=== PATIENT | female | born 1975 | race Hispanic/Latino ===

== ENCOUNTER → 2018-10-24 08:06 | Outpatient (CLI) | payer OTHER, SELFPAY ==
[2018-10-24 09:30] LABS: Appearance Urine UA CLEAR; Bilirubin Urine UA NEGATIVE (NEGATIVE); Color Urine UA YELLOW; Glucose Urine UA NEGATIVE (Negative); Ketones Urine UA NEGATIVE (NEGATIVE); Leukocyte Esterase Urine UA NEGATIVE (NEGATIVE); Nitrite Urine UA NEGATIVE (Negative); Occult Blood Urine UA NEGATIVE (Negative); Protein Urine UA NEGATIVE (Negative); Specific Gravity Urine UA 1.025 (1.000-1.035); Urobilinogen Urine UA 0.2 E.U./dL (0.2)
[2018-10-24 10:57] LABS: Add Manual Diff / Slide Review NO; Basophils Absolute Auto 0 /uL (0-100); Basophils Percent Auto 0.7 % (0-2); Eosinophils Absolute Auto 100 /uL (0-450); Eosinophils Percent Auto 2.4 % (2-4); Hemoglobin 13.9 g/dL (12.0-16.0); Lymphocytes Absolute Auto 1300 /uL (1100-4500); Lymphocytes Percent Auto 23.7 % (25-40); Mean Corpuscular HGB Conc 34.7 % (30-36); Mean Corpuscular Hemoglobin 32.3 PG (26-34); Monocytes Absolute Auto 400 /uL (0-900); Monocytes Percent Auto 7.3 % (3-14); Neutrophils Absolute Auto 3600 /uL (1500-7000); Neutrophils Percent Auto 65.9 % (50-75); Platelet Count 245 X10^3/uL (150-400); White Blood Cell Count 5.4 X10^3/uL (4.5-11.0)
[2018-10-24 11:07] LABS: Alanine Aminotransferase 44 IU/L (9-52); Albumin 4.6 g/dL (3.5-5.0); Albumin Globulin Ratio 1.3 (1.0-2.8); Alkaline Phosphatase 63 U/L (38-126); Aspartate Aminotransferase 34 IU/L (14-36); BUN Creatinine Ratio 23.3 (6-22); Bilirubin Total 1.6 mg/dL (0.2-1.3); Blood Urea Nitrogen 14 mg/dL (7-17); Calcium 9.1 mg/dL (8.4-10.2); Carbon Dioxide 26 mmol/L (22-32); Chloride 104 mmol/L (98-107); Cholesterol 282 mg/dL (140-199); Estimated Glomerular Filt Rate > 60.0 mL/min (>60); Globulin 3.5 g/dL (1.7-4.1); Glucose 80 mg/dL (70-100); HDL Cholesterol 61 mg/dL (40-60); HEMOLYSIS < 15 (0-50); LDL Cholesterol Calculated 195 mg/dL (<100); Potassium 4.1 mmol/L (3.4-5.1); Sodium 140 mmol/L (137-145); Total Protein 8.1 g/dL (6.3-8.2); Triglycerides 131 mg/dL (35-150)
[2018-10-24 11:13] LABS: HEMOLYSIS < 15 (0-50); Iron 142 ug/dL (37-170)
[2018-10-24 11:24] LABS: Percent Iron Saturation 42 % (15-50); Total Iron Binding Capacity 340 ug/dL (265-497); Transferrin 291 mg/dL (206-381)
[2018-10-24 11:43] LABS: Thyroid Stimulating Hormone 3.37 uIU/mL (0.47-4.68)
== END ==
PROVIDERS: PCP Family Medicine; Visit Provider Family Medicine
DX: D50.9 Iron deficiency anemia, unspecified (principal); Z12.11 Encounter for screening for malignant neoplasm of colon; Z13.220 Encounter for screening for lipoid disorders; Z13.29 Encounter for screening for other suspected endocrine disorder; Z51.81 Encounter for therapeutic drug level monitoring
CPT/HCPCS: 36415; 80053; 80061; 81003; 83540; 83550; 84443; 85025

== ENCOUNTER → 2018-10-25 14:59 | Outpatient (CLI) | payer OTHER, SELFPAY ==
[2018-10-27 15:40] LABS: Fecal Immunochemical Test NOT DETECTED (NOT DETECTED)
== END ==
PROVIDERS: PCP Family Medicine; Visit Provider Family Medicine
DX: Z12.11 Encounter for screening for malignant neoplasm of colon (principal)
CPT/HCPCS: 82274

== ENCOUNTER → 2019-01-23 07:03 | Outpatient (CLI) | payer OTHER, SELFPAY ==
[2019-01-23 08:49] LABS: Hematocrit 39.6 % (36-46); Hemoglobin 13.6 g/dL (12.0-16.0); Mean Corpuscular HGB Conc 34.3 % (30-36); Mean Corpuscular Hemoglobin 32.4 PG (26-34); Mean Corpuscular Volume 94.3 fL (80-100); Platelet Count 230 X10^3/uL (150-400); Red Cell Distribution Width 12.2 % (11.6-14.8); White Blood Cell Count 4.8 X10^3/uL (4.5-11.0)
[2019-01-23 08:55] LABS: Cholesterol 214 mg/dL (140-199); HDL Cholesterol 57 mg/dL (40-60); LDL Cholesterol Calculated 116 mg/dL (<100); Triglycerides 207 mg/dL (35-150)
[2019-01-23 09:01] LABS: Neutrophils Absolute Manual 3072 /uL (3000-5900); RBC Morphology Normal Morphology; Total Cells Counted 100
== END ==
PROVIDERS: PCP Family Medicine; Visit Provider Family Medicine
DX: E78.5 Hyperlipidemia, unspecified (principal); Z86.2 Personal history of diseases of the blood and blood-forming organs and certain disorders involving the immune mechanism
CPT/HCPCS: 36415; 80061; 85025

== ENCOUNTER → 2019-04-10 09:44 | Outpatient (CLI) | payer OTHER, SELFPAY | PROVIDERS: PCP Family Medicine; Visit Provider Family Medicine | DX: N94.3 Premenstrual tension syndrome (principal); N94.6 Dysmenorrhea, unspecified | CPT/HCPCS: 87086 ==

== ENCOUNTER → 2019-04-24 16:13 | Outpatient (CLI) | payer OTHER, SELFPAY ==
--- NOTE | 2019-04-24 16:14 | DI.US.S_ITS ---
PROCEDURE: US PELVIC COMPLETE INDICATIONS: PELVIC PAIN TECHNIQUE: Real-time scanning was performed of the pelvic organs, with image documentation. Additional endovaginal scanning was necessary due to incomplete visualization of the adnexal and endometrial structures by transabdominal scanning. COMPARISON: None. FINDINGS: Transabdominal scanning: Limited scanning through the kidneys shows no hydronephrosis. No pathologic free abdominal or pelvic fluid. Endovaginal scanning: Uterus: Uterus is normal in size at 1.5-4.3 x 5.1 cm. The endometrium measures 8.7 mm in combined thickness. 1.4 x 1.2 x 1.5 cm mid posterior intramural uterine fibroid noted. 0.8 x 1.0 x 0.8 cm left anterior intramural uterine fibroid. Ovaries: Right ovary measures 3.0 x 1.8 x 1.9 cm. There is a 2.0 x 1.5 x 1.4 cm complex cyst in the right ovary. Left ovary measures 2.4 x 1.2 x 1.2 cm. Left ovary is sonographically normal. IMPRESSION: 1. Small uterine fibroids. 2. 2.0 x 1.5 x 1.4 cm complex right adnexal cyst. Dictated by: Dixie Knapp MD, PhD on 04/25/2019 at 8:24 Approved by: Dixie Knapp MD, PhD on 04/25/2019 at 8:27
== END ==
PROVIDERS: PCP Family Medicine; Visit Provider Family Medicine
DX: R10.2 Pelvic and perineal pain (principal); D25.1 Intramural leiomyoma of uterus; N94.3 Premenstrual tension syndrome; N94.6 Dysmenorrhea, unspecified; N83.291 Other ovarian cyst, right side
CPT/HCPCS: 76830; 76856

== ENCOUNTER → 2019-06-22 16:54 | Outpatient (CLI) | payer OTHER, SELFPAY ==
--- NOTE | 2019-06-22 | DI.MG.S_ITS ---
BILATERAL DIGITAL SCREENING MAMMOGRAM 3D/2D WITH CAD: 06/22/2019 CLINICAL: Routine screening. Comparison is made to exams dated: 10/19/2017 mammogram and 10/07/2017 mammogram - [facility]. The tissue of both breasts is heterogeneously dense. This may lower the sensitivity of mammography. Current study was also evaluated with a Computer Aided Detection (CAD) system. There is a benign cyst in the left breast. No significant masses, calcifications, or other findings are seen in either breast. There has been no significant interval change. IMPRESSION: There is no mammographic evidence of malignancy. A 1 year screening mammogram is recommended. This exam was interpreted at Station ID: [id number]. NOTE: For mammograms, a report in lay terms will be sent to the patient. Approximately 15% of breast malignancies will not be visualized mammographically. In the management of a palpable breast mass, a negative mammogram must not discourage biopsy of a clinically suspicious lesion. Electronically Signed By: Mason ivy/candelaria:06/22/2019 17:59:07 letter sent: Normal Exam ACR BI-RADS Category 2: Benign Finding(s) 3342F
== END ==
PROVIDERS: PCP Family Medicine; Referring Provider Family Medicine; Visit Provider Family Medicine
DX: Z12.31 Encounter for screening mammogram for malignant neoplasm of breast (principal)
CPT/HCPCS: 77063; 77067

== ENCOUNTER → 2020-10-10 08:40 | Outpatient (CLI) | payer OTHER, SELFPAY ==
[2020-10-10 10:24] LABS: Add Manual Diff / Slide Review NO; Basophils Absolute Auto 0 /uL (0-100); Basophils Percent Auto 0.5 % (0-2); Eosinophils Absolute Auto 100 /uL (0-450); Eosinophils Percent Auto 2.1 % (2-4); Hematocrit 39.3 % (36-46); Hemoglobin 13.3 g/dL (12.0-16.0); Lymphocytes Absolute Auto 1400 /uL (1100-4500); Lymphocytes Percent Auto 25.5 % (25-40); Mean Corpuscular HGB Conc 33.9 % (30-36); Mean Corpuscular Hemoglobin 31.6 PG (26-34); Mean Corpuscular Volume 93.1 fL (80-100); Monocytes Absolute Auto 300 /uL (0-900); Monocytes Percent Auto 5.2 % (3-14); Neutrophils Absolute Auto 3700 /uL (1500-7000); Neutrophils Percent Auto 66.7 % (50-75); Platelet Count 244 X10^3/uL (150-400); Red Blood Cell Count 4.22 X10^6/uL (4.0-5.2); Red Cell Distribution Width 12.7 % (11.6-14.8); White Blood Cell Count 5.6 X10^3/uL (4.5-11.0)
[2020-10-10 11:38] LABS: Alanine Aminotransferase 17 IU/L (<35); Albumin 3.9 g/dL (3.5-5.0); Albumin Globulin Ratio 1.3 (1.0-2.8); Alkaline Phosphatase 56 U/L (38-126); Aspartate Aminotransferase 35 IU/L (14-36); BUN Creatinine Ratio 15.9 (6-22); Bilirubin Total 0.9 mg/dL (0.2-1.3); Blood Urea Nitrogen 11 mg/dL (7-17); Carbon Dioxide 22 mmol/L (22-32); Chloride 107 mmol/L (98-107); Cholesterol 176 mg/dL (140-199); Estimated Glomerular Filt Rate > 60.0 mL/min (>60); Globulin 3.1 g/dL (1.7-4.1); Glucose 81 mg/dL (70-100); HDL Cholesterol 70 mg/dL (40-60); HEMOLYSIS < 15 (0-50); LDL Cholesterol Calculated 66 mg/dL (<100); Potassium 4.5 mmol/L (3.4-5.1); Sodium 136 mmol/L (137-145); Triglycerides 199 mg/dL (35-150)
[2020-10-10 11:57] LABS: Thyroid Stimulating Hormone 1.81 uIU/mL (0.47-4.68)
== END ==
PROVIDERS: PCP Family Medicine; Referring Provider Family Medicine; Visit Provider Family Medicine
DX: Z00.00 Encounter for general adult medical examination without abnormal findings (principal); E78.5 Hyperlipidemia, unspecified
CPT/HCPCS: 36415; 80053; 80061; 84443; 85025

== ENCOUNTER 2021-05-19 08:59 | Emergency (ER) | payer OTHER, SELFPAY ==
[2021-05-19] VITALS (9 sets, daily range): BP systolic 135–154; BP diastolic 73–97; PULSE 84–103; RESP 17–18; TEMP 36.8; O2SAT 99–100; BMI 25.0
[2021-05-19 09:55] LABS: Bacteria Urine Few (2-10); Culture Indicated Urine Cult Not Indicated; Ictotest Urine Negative (Negative); RBC Urine 5-10/HPF (0-5/HPF); Squamous Epithelial Cell Urine 10-30 /HPF (0-5/HPF); WBC Urine 1-5/HPF (0-5/HPF)
[2021-05-19] MEDS: SODIUM CHLORIDE 0.9% 1,000 ML 1000 ML IV (10:06)
[2021-05-19 10:16] LABS: Add Manual Diff / Slide Review NO; Basophils Absolute Auto 0 /uL (0-100); Basophils Percent Auto 0.3 % (0-2); Eosinophils Absolute Auto 0 /uL (0-450); Eosinophils Percent Auto 0.2 % (2-4); Hematocrit 39.6 % (36-46); Hemoglobin 13.6 g/dL (12.0-16.0); Lymphocytes Absolute Auto 900 /uL (1100-4500); Lymphocytes Percent Auto 10.4 % (25-40); Mean Corpuscular HGB Conc 34.4 % (30-36); Mean Corpuscular Hemoglobin 31.1 PG (26-34); Mean Corpuscular Volume 90.4 fL (80-100); Monocytes Absolute Auto 500 /uL (0-900); Monocytes Percent Auto 5.8 % (3-14); Neutrophils Absolute Auto 7300 /uL (1500-7000); Neutrophils Percent Auto 83.3 % (50-75); Platelet Count 238 X10^3/uL (150-400); Red Blood Cell Count 4.38 X10^6/uL (4.0-5.2); Red Cell Distribution Width 13.2 % (11.6-14.8); White Blood Cell Count 8.8 X10^3/uL (4.5-11.0)
--- NOTE | 2021-05-19 10:16 | DI.CT.S_ITS ---
PROCEDURE: CT ABDOMEN PELVIS W CON INDICATIONS: low abdominal pain for 24 hours TECHNIQUE: After the administration of oral and intravenous contrast, axial sections were acquired from the lung bases to the pubic symphysis. Coronal and sagittal reformats were performed. For radiation dose reduction, the following was used: automated exposure control, adjustment of mA and/or kV according to patient size. COMPARISON:None. FINDINGS: Image quality: Excellent. Lung bases: Lung bases are clear. Heart size is normal. Solid organs: Liver: The liver has no mass or intrahepatic biliary ductal dilatation. The portal vein and hepatic veins are patent. Biliary: The gallbladder has no gallstones, pericholecystic fluid, gallbladder wall thickening, or surrounding inflammatory change. Pancreas: The pancreas has no mass or ductal dilatation. There is no surrounding inflammation. Spleen: Normal size. There are no masses. Adrenals: No hypertrophy or nodules. Kidneys: No obstructive calculus or hydronephrosis. No solid mass. No cystic mass. Peritoneum and bowel: The distal esophagus and stomach are normal. The small bowel has a normal caliber and appearance. The terminal ileum is normal. The right colon demonstrates diffuse wall thickening and edema possibly related to colitis. The appendix is fluid-filled and measures up to 7.4 mm in diameter. No free fluid or air. Nodes and vessels: No retroperitoneal or mesenteric adenopathy by size criteria. Aorta and inferior vena cava are normal in size. Miscellaneous: No abdominal wall mass or hernia. PELVIS: Genitourinary: The bladder has no wall thickening or mass. No bladder calcifications. The right ovary measures 2.4 x 2.0 cm. Bones: No suspicious bony lesions. No vertebral body compression fractures. IMPRESSION: 1. Fluid-filled appendix measuring 7.4 mm in diameter concerning for early acute appendicitis. 2. Wall thickening of the right colon consistent with colitis. 3. 2.4 cm right ovarian cyst. Findings were discussed with Dr. Brito Dictated by: Aurelio Pinto M.D. on 05/19/2021 at 10:30 Approved by: Aurelio Pinto M.D. on 05/19/2021 at 11:30
[2021-05-19 10:28] LABS: Alanine Aminotransferase 17 IU/L (<35); Albumin 4.5 g/dL (3.5-5.0); Albumin Globulin Ratio 1.2 (1.0-2.8); Alkaline Phosphatase 84 U/L (38-126); Aspartate Aminotransferase 31 IU/L (14-36); BUN Creatinine Ratio 13.4 (6-22); Bilirubin Total 0.6 mg/dL (0.2-1.3); Blood Urea Nitrogen 9 mg/dL (7-17); Calcium 9.1 mg/dL (8.4-10.2); Carbon Dioxide 25 mmol/L (22-32); Chloride 104 mmol/L (98-107); Estimated Glomerular Filt Rate > 60.0 mL/min (>60); Globulin 3.8 g/dL (1.7-4.1); Glucose 93 mg/dL (70-100); HEMOLYSIS 19 (0-50); Lipase 62 U/L (23-300); Potassium 3.9 mmol/L (3.4-5.1); Sodium 136 mmol/L (137-145); Total Protein 8.3 g/dL (6.3-8.2)
--- NOTE | 2021-05-19 10:28 | ED_ITS ---
HPI - Abdominal Pain General Chief Complaint: Abdominal Pain Stated Complaint: ABD PAIN Time Seen by Provider: 05/19/21 09:19 Source: patient Mode of arrival: Ambulatory History of Present Illness HPI narrative: 47-year-old woman with a history of hyperlipidemia comes in complaining of 24 hours of low abdominal pain that she describes as central and between her belly button and pubic symphysis. She describes no fevers has had some diarrhea. She notes that she is 5 days post starting her menstrual cycle and is still having a small amount of spotting. She describes the abdominal pain that she currently is having as sharper and decidedly different from usual menstrual type cramping. She has not had a fever, she has had decreased appetite associated with nausea, mild headache, mild chills. She is not reporting dysuria or flank pain. She has no cough, dyspnea, chest pain or palpitations. Related Data Home Medications Medication Instructions Recorded Confirmed ibuprofen 600 mg tablet 600 mg PO Q6H 10/10/18 10/16/20 Previous Rx's Medication Instructions Recorded pravastatin 20 mg tablet 20 mg PO BEDTIME #90 tab 10/16/20 norethindrone 1.5 mg-ethinyl 1 tab PO DAILY #140 tab 05/06/21 estradiol 30 mcg(21)/iron 75 mg(7) tablet (Jessie Fe 1.5/30 (28)) ondansetron 4 mg disintegrating 4 mg PO Q6H PRN #14 tab 05/19/21 tablet oxycodone-acetaminophen 5 mg-325 1 tab PO Q6H PRN #10 tab 05/19/21 mg tablet Allergies Allergy/AdvReac Type Severity Reaction Status Date / Time No Known Drug Allergies Allergy Verified 05/19/21 09:17 Review of Systems Review of Systems Narrative: Remainder of complete review of systems is otherwise unremarkable except for that included in the HPI. Patient History Medical History Anemia Ankle pain Hair loss Painful menstrual periods Well adult exam Social History Smoking Status: Never smoker alcohol intake: current (1-2 glasses a day) Smoking Status: Never smoker alcohol intake frequency: 0-2 drinks per day Substance Use Type: does not use Exam Initial Vital Signs Initial Vital Signs: Vital Signs Temperature 98.2 F 05/19/21 09:10 Pulse Rate 103 H 05/19/21 09:10 Respiratory Rate 18 05/19/21 09:10 Blood Pressure 154/97 H 05/19/21 09:10 Pulse Oximetry 100 05/19/21 09:10 General: Healthy appearing, experiencing mild abdominal pain. Able to give a complete and coherent history. Well-nourished well-developed HEENT: Moist mucous membranes, normal sclera with reactive pupils, Respiratory: Lungs are clear to auscultation, no wheezing no rales no rhonchi. Full and symmetrical air movement Cardiac: Regular rate and rhythm no murmurs no bruits Abdomen: Soft, mild tenderness in the lower portion of her abdomen with majority of tenderness midline and infra umbilical. Good bowel tones, no flank pain Skin: Warm and dry, no rashes Neurologic: Grossly neurologically intact with no obvious asymmetries or abnormalities Extremities: No trauma, well perfused Psych: Cooperative, appropriate insight and affect Course Orders Ordered: ED Orders 05/19/21 09:24 Ictotest Urine Stat Urine Microscopic Stat 05/19/21 10:04 Complete Blood Count AUTO DIFF Stat Comprehensive Metabolic Panel Stat Lipase Stat 05/19/21 10:16 CT abdomen pelvis w con Stat Discontinued Medications Sodium Chloride (Normal Saline 0.9%) 1,000 mls @ 1,000 mls/hr IV BOLUS ONE Stop: 05/19/21 10:34 Last Admin: 05/19/21 10:06 Dose: 1,000 mls/hr Documented by: EMILIO Vital Signs Vital signs: Vital Signs - 8 hr 05/19/21 09:10 05/19/21 10:03 05/19/21 10:04 Temperature 98.2 F Pulse Rate 103 H 89 89 Respiratory Rate 18 17 Blood Pressure 154/97 H 141/74 H Pulse Oximetry 100 100 100 05/19/21 10:30 05/19/21 11:00 05/19/21 11:24 Temperature Pulse Rate 86 85 86 Respiratory Rate 18 18 Blood Pressure 145/82 H Pulse Oximetry 100 99 100 05/19/21 11:30 Temperature Pulse Rate 85 Respiratory Rate Blood Pressure 149/83 H Pulse Oximetry 100 MDM - Abdominal Pain Lab Data Result diagrams: 05/19/21 10:04 05/19/21 10:04 Labs: Lab Results 0105/19/21 05/19/21 Range/Units 09:24 10:04 10:04 WBC 8.8 (4.5-11.0) X10^3/uL RBC 4.38 (4.0-5.2) X10^6/uL Hgb 13.6 (12.0-16.0) g/dL Hct 39.6 (36-46) % MCV 90.4 (80-100) fL MCH 31.1 (26-34) PG MCHC 34.4 (30-36) % RDW 13.2 (11.6-14.8) % Plt Count 238 (150-400) X10^3/uL Neut % (Auto) 83.3 H (50-75) % Lymph % (Auto) 10.4 L (25-40) % [place] % (Auto) 5.8 (3-14) % Eos % (Auto) 0.2 L (2-4) % Baso % (Auto) 0.3 (0-2) % Neut # (Auto) 7300 H (8671-9348) /uL Lymph # (Auto) 900 L (0989-3089) /uL [place] # (Auto) 500 (0-900) /uL Eos # (Auto) 0 (0-450) /uL Baso # (Auto) 0 (0-100) /uL Sodium 136 L (137-145) mmol/L Potassium 3.9 (3.4-5.1) mmol/L Chloride 104 (98-107) mmol/L Carbon Dioxide 25 (22-32) mmol/L BUN 9 (7-17) mg/dL Creatinine 0.67 (0.52-1.04) mg/dL Estimated GFR > 60.0 (>60) mL/min BUN/Creatinine Ratio 13.4 (6-22) Glucose 93 (70-100) mg/dL Calcium 9.1 (8.4-10.2) mg/dL Total Bilirubin 0.6 (0.2-1.3) mg/dL AST 31 (14-36) IU/L ALT 17 (<35) IU/L Alkaline Phosphatase 84 (38-126) U/L Total Protein 8.3 H (6.3-8.2) g/dL Albumin 4.5 (3.5-5.0) g/dL Globulin 3.8 (1.7-4.1) g/dL Albumin/Globulin Ratio 1.2 (1.0-2.8) Lipase 62 (23-300) U/L Ur Bilirubin Confirm Negative (Negative) Urine RBC 5-10/hpf H (0-5/HPF) Urine WBC 1-5/hpf (0-5/HPF) Ur Squamous Epith Cells 10-30 /hpf H (0-5/HPF) Urine Bacteria Few (2-10) H (None) Ur Culture Indicated? Cult not indicated Point of care testing: Point of Care Testing Test Results Negative Urine Dip Bedside Urine Glucose Negative Bedside Urine Bilirubin ++ 2 Bedside Urine Ketone +++ 80 Urine Specific [place] 1.030 Bedside Urine Occult Blood +++ Bedside Urine pH 6.0 Bedside Urine Protein + 30 Bedside Urine Urobilinogen - Negative Bedside Urine Nitrite - Negative Bedside Urine Leukocytes - Negative Esterase MDM Narrative Medical decision making narrative: Healthy 46-year-old woman with 24 hours of low abdominal pain and diarrhea. Labs are reassuring CT scan shows a slightly distended fluid-filled appendix at 7 mm with out significant associated inflammatory changes that could be consistent with a developing appendicitis she also has colon wall thickness from the right colon to the transverse colon that could be consistent with colitis. Discuss care with Dr. Saldana, general surgery regarding disposition. After reviewing clinical findings labs and CT scan agrees that discharged home with close return precautions does seem appropriate. Findings reviewed with patient and her . Went over all labs, clinical findings and CT scan results as well as discussion with the surgeon. Recommended discharge home with a short course of Percocet to help cover up the pain. If if symptoms significantly worsen she needs to return to the emergency department. Went over signs and symptoms of worsening appendicitis as well as colitis. She and her were both safe with this discharge plan. Questions were answered. Discharge Plan Departure Patient Disposition: Home Clinical Impression: Abdominal pain, Colitis Instructions: DI for Appendicitis -- Adult, DI for Colitis Activity Restrictions/Additional Instructions: Thank you for coming in today Your lab work was very reassuring with no signs of acute infection. Your CT scan suggested inflammation along the right side of your colon consistent with colitis. This absolutely could cause the rhythmic pain that you are experiencing as well as the diarrhea. Also noted on the CT scan is some mild inflammation to your appendix. This may be part of the colitis but it may also be a developing appendicitis. Appendicitis is a process that will continue to get worse. If you do notice that the pain is no longer controlled with Percocet and seems to be localizing to your right lower portion of your abdomen the concern for appendicitis would increase. I discussed your case with our general surgeon today. Together we felt that it was safe for you to go and use Percocet, a narcotic plus Tylenol, for pain control for the next 1-2 days. If your pain worsens to the point that the Percocet is not working, your developing fevers, having uncontrolled vomiting or new symptoms you need to return to the emergency department and we need to re- evaluate. If symptoms resolve, you will need to follow-up with your primary care physician. It may be that these episodes of abdominal pain you have had over the last number of years of are related to of mild recurrent colitis. Your primary care doctor may want to refer you to a evening or night nurse supervisor for consideration of colonoscopy while you are healthy and asymptomatic. Please have a very low threshold for returning to the emergency department if symptoms worsen Prescriptions: New ondansetron 4 mg tablet,disintegrating 4 mg PO Q6H PRN (Reason: nausea and vomiting) Qty: 14 0RF oxycodone-acetaminophen 5-325 mg tablet 1 tab PO Q6H PRN (Reason: pain) Qty: 10 0RF No Action norethindrone-e.estradiol-iron [Jessie Fe 1.5/30 (28)] 1.5 mg-30 mcg (21)/75 mg (7) tablet 1 tab PO DAILY Qty: 140 0RF Rx Instructions: APPOINTMENT DUE FOR FURTHER REFILLS. PLEASE SCHEDULE APPOINTMENT FOR MAY. THANK YOU! pravastatin 20 mg tablet 20 mg PO BEDTIME Qty: 90 3RF ibuprofen 600 mg tablet 600 mg PO Q6H 0RF Referrals: Loi Borja, [Primary Care Provider] -
[2021-05-19] MEDS: OXYCODONE/ACETAMINOPHEN 5/325 TABLET 1 TAB PO (12:32)
[2021-05-19] MEDS: ONDANSETRON 4 MG/2 ML INJ IV (12:33)
== END 2021-05-19 12:37 | disposition home or self-care (01) ==
PROVIDERS: Emergency Provider Emergency Medicine; PCP Family Medicine
DX: R10.30 Lower abdominal pain, unspecified (principal); K52.9 Noninfective gastroenteritis and colitis, unspecified
CPT/HCPCS: 36415; 74177; 80053; 81003; 81015; 81025; 83690; 85025; 96361; 96374; 99284; J2405; Q9967

== ENCOUNTER → 2021-08-08 13:55 | Outpatient (CLI) | payer OTHER, SELFPAY ==
[2021-08-08 14:26] LABS: COVID19 -Nasal RAPID Negative (Negative)
== END ==
PROVIDERS: PCP Family Medicine; Visit Provider Family Medicine Sleep Medicine
DX: Z20.822 Contact with and (suspected) exposure to COVID-19 (principal)
CPT/HCPCS: 87635; C9803

== ENCOUNTER 2021-08-11 06:43 | Day surgery (SDC) | payer OTHER, SELFPAY ==
--- NOTE | 2021-08-11 | PATH_ITS ---
[facility] Accession Number: [id number] . 01 Material submitted: . PART A: duodenum - DUODENUM PART B: stomach - ANTRUM PART C: colon - RANDOM COLON . 02 Diagnosis: A. Duodenum, Biopsy: Mild active duodenitis, non-specific. Negative for features of sprue, dysplasia, or malignancy. . B. Antrum, Biopsy: Gastric antral mucosa with chronic active gastritis. Positive for Helicobacter organisms by immunohistochemistry. Negative for intestinal metaplasia. Negative for dysplasia or malignancy. . C. Random Colon: Colonic mucosa with no diagnostic abnormality. Negative for active, chronic, and microscopic colitis. Negative for dysplasia and malignancy. [facility] 08/15/2021 1559 Local . 02 Electronically signed: . Barbara Dhillon MD, Pathologist NPI- [id number] . 01 Gross description: . Part A: DUODENUM: Received in formalin are multiple fragment(s) of silva, soft tissue measuring 0.7 x 0.5 x 0.1 cm in aggregate submitted entirely in 1 cassette(s) Part B: ANTRUM: Received in formalin are 2 fragment(s) of silva, soft tissue measuring 0.2 x 0.2 x 0.1 cm to 0.2 x 0.1 x 0.1 cm submitted entirely in 1 cassette(s) Part C: RANDOM COLON: Received in formalin are 2 fragment(s) of silva, soft tissue measuring 0.3 x 0.2 x 0.1 cm to 0.2 x 0.1 x 0.1 cm submitted entirely in 1 cassette(s) /[facility] 08/12/2021 0854 Local . 02 Microscopic: . B. An immunohistochemical stain is performed to evaluate for Helicobacter organisms and is positive. The control stain shows appropriate reactivity. . . * This test was developed and its performance characteristics determined by [facility]. It has not been cleared or approved by the U.S. Food and Drug Administration. The FDA has determined that such clearance or approval is not necessary. This test is used for clinical purposes. It should not be regarded as investigational or for research. . 02 Pathologist provided ICD-10: R12, R19.4, K29.70 . 02 CPT . 336775, 996788, 717510, C50829 Specimen Comment: A courtesy copy of this report has been sent to [facility] Performed at: 01 [facility] [address] [place] [address], [place], [place] [id number] MD Lorenzo Hampton MD Phone: [phone] Performed at: 02 [facility] [address] [place] [id number] MD Lovely Turner MD Phone: [phone]
[2021-08-11 07:15] VITALS: BP 117/79; PULSE 74; RESP 14; TEMP 36.6; O2SAT 100
[2021-08-11 07:17] VITALS: BMI 26.1
[2021-08-11] MEDS: SODIUM CHLORIDE 0.9% 1,000 ML 150 ML IV (07:31)
--- NOTE | 2021-08-11 07:57 | PM.HP.1 ---
History of Present Illness History of Present Illness Date Patient Seen: 08/11/21 Time Patient Seen: 07:58 Chief complaint: SDC Narrative: I reviewed Dr. Shetty's note. No changes. Patient History Medical History Anemia Ankle pain Fatigue Hair loss Painful menstrual periods Well adult exam Family & Social History Social History: household members spouse Tobacco & Substance use: Smoking Status Never smoker alcohol intake current alcohol intake frequency 0-2 drinks per day Substance Use Type does not use Meds Home Medications and Allergies Home Medications Medication Instructions Recorded Confirmed Type melatonin 1 mg tablet 2 mg PO BEDTIME 08/11/21 08/11/21 History Allergies Allergy/AdvReac Type Severity Reaction Status Date / Time No Known Drug Allergies Allergy Verified 08/11/21 07:13 Review of Systems Review of Systems ROS: Yes All systems reviewed with the patient and are negative except as otherwise documented Exam Vital Signs (past 8 hours): - 08/11/21 07:15 Temperature 97.8 F Pulse Rate 74 Respiratory Rate 14 Blood Pressure 117/79 Pulse Oximetry 100 Oxygen Delivery Method Room Air Const General: cooperative and comfortable Orientation: alert HENMT Head: normocephalic Ears: external ears normal Nose: external nose normal Face and sinus: normal facial exam Mouth: oral mucosae normal Eyes General: appearance normal, both eyes and all related structures Neck Neck: normal visual inspection Chest Chest: normal inspection of the chest Resp Effort & Inspection: normal respiratory effort Cardio Rate: regular rate GI Inspection: normal to inspection Skin General: no rashes or lesions noted and No jaundice Neuro General: patient alert and moves all extremities Cognition: normal cognition Speech: speech normal Extrem General: no pedal edema Psych Appearance: grossly normal Assessment & Plan Assessment & Plan narrative: 46-year-old female with abdominal pain, tendency towards diarrhea but can have constipation and abnormal imaging. EGD and colonoscopy are pursued today. Time Spent With Patient Critical Care time: I spent a total of [] minutes of critical care time on this patient's care today; this time is exclusive of procedural time.
--- NOTE | 2021-08-11 07:59 | PM.PREOP ---
Pre-operative Note COVID-19 COVID-19 status: Negative Result date/Date tested (Pos, Neg/Pending): 08/08/21 Criteria for continued procedure: Possibility delay results in more complex future surgery or treatment Interval Note History & Physical reviewed/Exam performed by Physician: Yes Changes to H&P: No ASA Class (for procedural sedation): I
[2021-08-11] MEDS: LIDOCAINE VISCOUS 2% 15 ML SOLUTION PO (08:00)
--- NOTE | 2021-08-11 08:35 | PM.OP.EC ---
Operative Date/Time/Diagnoses Date of procedure: 08/11/21 Time of procedure: 08:36 Pre-op diagnosis: Abdominal pain abnormal imaging altered bowel habits including diarrhea Post-op diagnosis: same Procedure & Clinicians Study performed: EGD with biopsy and colonoscopy with biopsy Same procedure as scheduled: Yes Indications: Abdominal pain abnormal imaging altered bowel habits including diarrhea Surgeon: Frank Carranza Procedure Notes SCOAP/Timeout: Done Procedure in detail: After the risks and benefits were explained, written and verbal informed consent was obtained. The patient was brought into the procedure room and placed into the left lateral decubitus position. Please see nurse decision analyst notes for sedation details. The scope was introduced into the mouth through the bite block and advanced under direct visualization to the 2nd portion of the duodenum. The scope was slowly withdrawn carefully examining the mucosa for any defects or lesions. Retroflexed views were accomplished in the stomach. The stomach was decompressed, the scope was then removed from the patient who tolerated the procedure well. Patient was then turned around a digital rectal examination accomplished no significant pathology appreciated. The scope was introduced into the rectum and advanced to the cecum as identified by the appendiceal orifice and ileocecal valve. The scope was slowly withdrawn to carefully examine the mucosa for any defects or lesions. Multiple direct views were accomplished through the dentate line for exclusion of pathology the colon was decompressed the scope removed from the patient who tolerated the procedure well. Bowel prep adequate Adult colonoscope Scope withdrawal time: 11 minutes Sedation minutes: 31 Complications: none Impression: 1. Duodenum: This appeared visually unremarkable from the bulb through to the 2nd portion. Random biopsies from D2 were accomplished considering the patient's symptoms. 2. Stomach: Mild gastropathy was appreciated and therefore biopsies were taken from the antrum for exclusion of Helicobacter or other pathology. I did not appreciate any ulcers outlet obstruction mass lesions or other significant mucosal pathology. Retroflexed views of the LES were unremarkable. 3. Esophagus: The squamocolumnar junction correlated with the top of the gastric folds. GEJ was at 35 cm from the incisors. The remainder the esophagus was unremarkable. 4. Terminal ileum: This was visualized and appeared normal. No signs of Crohn's. 5. Colon: No proctitis no colitis identified throughout. Random colon biopsies were taken from the right colon for exclusion of microscopic colitis. There was some mild diverticulosis in the sigmoid. Endoscopic diagnosis 1. Mild gastropathy 2. Otherwise visually unremarkable EGD 3. Mild sigmoid diverticulosis 4. Otherwise visually normal appearing colonoscopy and terminal ileoscopy Post-procedure Plan for aftercare: 1. Await histopathology 2. Repeat colonoscopy 10 years time 3. Continue fiber based bowel regimen and follow up in GI clinic in the next 8 weeks Disposition: PACU
[2021-08-11 08:38] VITALS: BP 111/71; PULSE 71; RESP 16; TEMP 37; O2SAT 98
[2021-08-11 08:43] VITALS: BP 114/64; PULSE 66; RESP 16; O2SAT 98
[2021-08-11 08:48] VITALS: BP 122/77; PULSE 68; RESP 16; O2SAT 98
[2021-08-11 08:57] VITALS: BP 132/72; PULSE 61; RESP 16; TEMP 36.2; O2SAT 98
== END 2021-08-11 09:09 | disposition home or self-care (01) ==
PROVIDERS: PCP Family Medicine; Referring Provider Internal Medicine Gastroenterology; Visit Provider Internal Medicine Gastroenterology
PROC: 0DJ08ZZ Inspection of Upper Intestinal Tract, Via Natural or Artificial Opening Endoscopic (ICD-10-PCS; CPT 43235; principal; 2021-08-11 08:00)
PROC: 0DJD8ZZ Inspection of Lower Intestinal Tract, Via Natural or Artificial Opening Endoscopic (ICD-10-PCS; CPT 45378; 2021-08-11 08:00)
DX: R10.9 Unspecified abdominal pain (principal); R19.7 Diarrhea, unspecified; R93.3 Abnormal findings on diagnostic imaging of other parts of digestive tract; K57.30 Diverticulosis of large intestine without perforation or abscess without bleeding; K31.9 Disease of stomach and duodenum, unspecified; K29.50 Unspecified chronic gastritis without bleeding; K29.80 Duodenitis without bleeding
CPT/HCPCS: 45380; 43239; 81025; J2704

== ENCOUNTER → 2021-11-10 10:08 | Outpatient (CLI) | payer OTHER, SELFPAY ==
[2021-11-11 13:33] LABS: Interpretation Negative (Negative)
== END ==
PROVIDERS: PCP Family Medicine; Referring Provider Internal Medicine Gastroenterology; Visit Provider Internal Medicine Gastroenterology
DX: K29.60 Other gastritis without bleeding (principal)
CPT/HCPCS: 83013

== ENCOUNTER 2022-03-02 11:23 | Emergency (ER) | payer OTHER, SELFPAY ==
[2022-03-02] VITALS (10 sets, daily range): BP systolic 134–195; BP diastolic 71–94; PULSE 67–75; RESP 10–25; TEMP 36.6; O2SAT 98–100; BMI 25.9
--- NOTE | 2022-03-02 11:38 | DI.RAD.S_ITS ---
PROCEDURE: XR CHEST 1V INDICATIONS: chest pain TECHNIQUE: One view of the chest was acquired. COMPARISON: None. FINDINGS: Surgical changes and devices: None. Lungs and pleura: Lungs are clear. No pleural effusions or pneumothorax. Mediastinum: Mediastinal contours appear normal. Heart size is normal. Bones and chest wall: No suspicious bony lesions. Overlying soft tissues appear unremarkable. IMPRESSION: No acute process. Dictated by: Nevaeh Beard M.D. on 03/02/2022 at 11:55 Approved by: Nevaeh Beard M.D. on 03/02/2022 at 11:56
[2022-03-02 11:43] LABS: Add Manual Diff / Slide Review NO; Basophils Absolute Auto 0 /uL (0-100); Basophils Percent Auto 0.6 % (0-2); Eosinophils Absolute Auto 100 /uL (0-450); Eosinophils Percent Auto 1.8 % (2-4); Hematocrit 40.7 % (36-46); Hemoglobin 13.5 g/dL (12.0-16.0); Lymphocytes Absolute Auto 2100 /uL (1100-4500); Mean Corpuscular HGB Conc 33.2 % (30-36); Mean Corpuscular Hemoglobin 30.4 PG (26-34); Mean Corpuscular Volume 91.7 fL (80-100); Monocytes Absolute Auto 500 /uL (0-900); Monocytes Percent Auto 7.8 % (3-14); Neutrophils Absolute Auto 3400 /uL (1500-7000); Neutrophils Percent Auto 55.8 % (50-75); Platelet Count 233 X10^3/uL (150-400); Red Blood Cell Count 4.44 X10^6/uL (4.0-5.2); Red Cell Distribution Width 13.4 % (11.6-14.8); White Blood Cell Count 6.1 X10^3/uL (4.5-11.0)
[2022-03-02 11:53] LABS: Alanine Aminotransferase 24 IU/L (<35); Albumin 4.6 g/dL (3.5-5.0); Albumin Globulin Ratio 1.2 (1.0-2.8); Alkaline Phosphatase 89 U/L (38-126); Aspartate Aminotransferase 31 IU/L (14-36); BUN Creatinine Ratio 15.6 (6-22); Bilirubin Total 0.8 mg/dL (0.2-1.3); Blood Urea Nitrogen 10 mg/dL (7-17); Calcium 9.1 mg/dL (8.4-10.2); Carbon Dioxide 24 mmol/L (22-32); Chloride 102 mmol/L (98-107); Creatine Kinase 106 U/L (30-135); Estimated Glomerular Filt Rate > 60 mL/min (>60); Glucose 96 mg/dL (70-100); HEMOLYSIS < 15 (0-50); Lipase 108 U/L (23-300); Magnesium 1.6 mg/dL (1.6-2.3); Potassium 3.7 mmol/L (3.4-5.1); Sodium 137 mmol/L (137-145); Total Protein 8.6 g/dL (6.3-8.2)
[2022-03-02 12:05] LABS: Troponin I < 0.012 ng/mL (0.01-0.034)
[2022-03-02 12:08] LABS: CKMB % Relative Index 0.8 % (1.5-5.0); Creatine Kinase MB 0.81 ng/mL (<2.37)
--- NOTE | 2022-03-02 14:46 | ED.CHESTPAIN ---
HPI - Chest Pain <Virgilio Victor PA-C - Last Filed: 03/02/22 19:20> General Chief Complaint: Chest Pain Stated Complaint: Stomach Pain/Heartburn/Fatige/Chest Pressure Time Seen by Provider: 03/02/22 13:42 Mode of arrival: Family Vehicle History of Present Illness HPI narrative: 47-year-old female with past medical history GERD, H pylori, hyperlipidemia presents to the ED with substernal chest pressure, abdominal cramping. Patient states that she has had abdominal issues for several years, was diagnosed with H pylori recently, was treated with antibiotics, retested to ensure resolution. Patient states that since the treatment, her symptoms have considerably improved. However, patient states that over the last week she has had worsening lower abdominal cramping, developed some substernal chest pressure yesterday. Patient denies fever, chills, shortness of breath, nausea, vomiting, dysuria, lightheadedness, dizziness, syncope. Patient states that her GERD has been acting up recently, she is taken Tums with no relief. Related Data Home Medications Medication Instructions Recorded Confirmed melatonin 1 mg tablet 2 mg PO BEDTIME 08/11/21 02/08/22 Previous Rx's Medication Instructions Recorded dicyclomine 10 mg capsule 10 mg PO TID PRN stomach cramps 03/02/22 #30 caps Allergies Allergy/AdvReac Type Severity Reaction Status Date / Time No Known Drug Allergies Allergy Verified 03/02/22 11:36 Review of Systems <Virgilio Victor PA-C - Last Filed: 03/02/22 19:20> Review of Systems ROS Unobtainable: All systems reviewed & are unremarkable except as noted in HPI and below Constitutional Constitutional: Denies chills, Denies fatigue, Denies fever(s), Denies frequent falls, Denies lethargy and Denies weakness Eyes Eyes: Denies change in vision, Denies eye discharge, Denies irritation and Denies loss of vision ENT Ears, Nose, Mouth, and Throat: Denies change in voice, Denies dizziness, Denies neck pain, Denies sore throat and Denies throat swelling Cardiovascular Cardiovascular: Reports chest pain, Denies irregular heart rhythm, Denies lightheadedness, Denies palpitations, Denies dyspnea, Denies dyspnea on exertion and Denies orthopnea Respiratory Respiratory: Denies cough, Denies dyspnea, Denies dyspnea on exertion and Denies wheezing Gastrointestinal Gastrointestinal: Reports abdominal pain, Denies change in bowel habits, Denies diarrhea, Denies nausea and Denies vomiting Genitourinary Genitourinary: Denies hematuria, Denies flank pain, Denies urinary incontinence and Denies urinary urgency Musculoskeletal Musculoskeletal: Denies back pain, Denies muscle weakness, Denies neck pain, Denies numbness and Denies tingling Integumentary/Breasts Skin/Breast: Denies pruritus, Denies erythema, Denies rash and Denies wounds Neurologic Neurologic: Denies behavioral changes, Denies confusion, Denies dizziness, Denies frequent falls, Denies loss of vision, Denies numbness, Denies tingling and Denies weakness Psychiatric Psychiatric: Denies anxiety, Denies behavioral changes, Denies confusion, Denies depression, Denies homicidal ideation and Denies suicidal ideation Endocrine Endocrine: Denies fatigue, Denies flushing and Denies palpitations Hematologic/Lymphatic Hematologic/Lymphatic: Denies easy bruising Allergic/Immunologic Allergic/Immunologic: Denies urticaria, Denies throat swelling and Denies wheezing Patient History <Virgilio Victor PA-C - Last Filed: 03/02/22 19:20> Medical History Anemia Ankle pain Fatigue Hair loss Painful menstrual periods Well adult exam Social History household members: spouse Smoking Status: Never smoker alcohol intake: current Smoking Status: Never smoker alcohol intake frequency: 0-2 drinks per day Substance Use Type: does not use Exam <Virgilio Victor PA-C - Last Filed: 03/02/22 19:20> Narrative Exam Narrative: Const General:?cooperative, healthy appearing and comfortable [facility] Head:?normal to inspection Ears:?hearing grossly normal bilaterally Nose:?external nose normal Face and sinus:?normal facial exam and sinuses nontender Mouth:?oral mucosae normal Throat:?posterior oropharynx normal Eyes General:?appearance normal, both eyes and all related structures Neck Neck:?normal visual inspection and no lymphadenopathy noted Resp Effort & Inspection:?normal respiratory effort Auscultation:?clear to auscultation bilaterally Cardio Rate:?regular rate Rhythm:?regular rhythm GI Abdomen is soft, nondistended, nontender to palpation. No CVA tenderness. Neuro General:?patient alert, patient awake and patient oriented x3 Initial Vital Signs Initial Vital Signs: Vital Signs Pulse Rate 71 03/02/22 11:32 Respiratory Rate 15 03/02/22 11:32 Pulse Oximetry 100 03/02/22 11:32 <Barbara Rocha DO - Last Filed: 03/02/22 19:23> Initial Vital Signs Initial Vital Signs: Vital Signs Pulse Rate 71 03/02/22 11:32 Respiratory Rate 15 03/02/22 11:32 Pulse Oximetry 100 03/02/22 11:32 Course <Virgilio Victor PA-C - Last Filed: 03/02/22 19:20> Orders Ordered: ED Orders 03/02/22 11:35 Complete Blood Count AUTO DIFF Stat Comprehensive Metabolic Panel Stat Lipase Stat Magnesium Stat Troponin & CK Cardiac Panel Stat 03/02/22 11:38 XR chest 1V Stat EKG-12 Lead Stat 03/02/22 14:00 Troponin I Stat 03/02/22 14:04 EKG-12 Lead Stat Discontinued Medications Al Hydrox/Mg Hydrox/Simethicone 20 ml/ Lidocaine HCl 15 ml 0 ml PO NOW ONE Stop: 03/02/22 14:55 Last Admin: 03/02/22 15:06 Dose: 35 ml Documented By: RODERICK Famotidine (Famotidine 20 Mg/2 Ml Vial) 20 mg IV NOW ONE Stop: 03/02/22 15:16 Last Admin: 03/02/22 15:06 Dose: 20 mg Documented By: RODERICK Vital Signs Vital signs: Vital Signs - 8 hr 03/02/22 11:33 03/02/22 11:32 03/02/22 12:00 Temperature 98 F Pulse Rate 71 71 67 Respiratory Rate 12 15 18 Blood Pressure 195/94 H Pulse Oximetry 98 100 100 Oxygen Delivery Method Room Air 03/02/22 12:30 03/02/22 13:00 03/02/22 13:30 Temperature Pulse Rate 69 75 74 Respiratory Rate 16 17 18 Blood Pressure Pulse Oximetry 100 100 100 Oxygen Delivery Method 03/02/22 14:00 03/02/22 14:29 03/02/22 14:29 Temperature Pulse Rate 75 72 Respiratory Rate 25 H 10 L Blood Pressure 150/83 H Pulse Oximetry 100 100 Oxygen Delivery Method 03/02/22 14:30 03/02/22 14:30 03/02/22 15:00 Temperature Pulse Rate 71 Respiratory Rate 16 Blood Pressure 144/84 H 134/71 Pulse Oximetry 100 Oxygen Delivery Method 03/02/22 15:00 Temperature Pulse Rate 69 Respiratory Rate 12 Blood Pressure Pulse Oximetry 98 Oxygen Delivery Method <Barbara Rocha, - Last Filed: 03/02/22 19:23> Orders Ordered: ED Orders 03/02/22 11:35 Complete Blood Count AUTO DIFF Stat Comprehensive Metabolic Panel Stat Lipase Stat Magnesium Stat Troponin & CK Cardiac Panel Stat 03/02/22 11:38 XR chest 1V Stat EKG-12 Lead Stat 03/02/22 14:00 Troponin I Stat 03/02/22 14:04 EKG-12 Lead Stat Discontinued Medications Al Hydrox/Mg Hydrox/Simethicone 20 ml/ Lidocaine HCl 15 ml 0 ml PO NOW ONE Stop: 03/02/22 14:55 Last Admin: 03/02/22 15:06 Dose: 35 ml Documented By: RODERICK Famotidine (Famotidine 20 Mg/2 Ml Vial) 20 mg IV NOW ONE Stop: 03/02/22 15:16 Last Admin: 03/02/22 15:06 Dose: 20 mg Documented By: RODERICK Vital Signs Vital signs: Vital Signs - 8 hr 03/02/22 11:33 03/02/22 11:32 03/02/22 12:00 Temperature 98 F Pulse Rate 71 71 67 Respiratory Rate 12 15 18 Blood Pressure 195/94 H Pulse Oximetry 98 100 100 Oxygen Delivery Method Room Air 03/02/22 12:30 03/02/22 13:00 03/02/22 13:30 Temperature Pulse Rate 69 75 74 Respiratory Rate 16 17 18 Blood Pressure Pulse Oximetry 100 100 100 Oxygen Delivery Method 03/02/22 14:00 03/02/22 14:29 03/02/22 14:29 Temperature Pulse Rate 75 72 Respiratory Rate 25 H 10 L Blood Pressure 150/83 H Pulse Oximetry 100 100 Oxygen Delivery Method 03/02/22 14:30 03/02/22 14:30 03/02/22 15:00 Temperature Pulse Rate 71 Respiratory Rate 16 Blood Pressure 144/84 H 134/71 Pulse Oximetry 100 Oxygen Delivery Method 03/02/22 15:00 Temperature Pulse Rate 69 Respiratory Rate 12 Blood Pressure Pulse Oximetry 98 Oxygen Delivery Method MDM - Chest Pain <Hyma Valente, PA-C - Last Filed: 03/02/22 19:20> Lab Data Result diagrams: 03/02/22 11:35 03/02/22 11:35 Labs: Lab Results 03/02/22 03/02/22 03/02/22 Range/Units 11:35 11:35 14:00 WBC 6.1 (4.5-11.0) X10^3/uL RBC 4.44 (4.0-5.2) X10^6/uL Hgb 13.5 (12.0-16.0) g/dL Hct 40.7 (36-46) % MCV 91.7 (80-100) fL MCH 30.4 (26-34) PG MCHC 33.2 (30-36) % RDW 13.4 (11.6-14.8) % Plt Count 233 (150-400) X10^3/uL Neut % (Auto) 55.8 (50-75) % Lymph % (Auto) 34.0 (25-40) % [place] % (Auto) 7.8 (3-14) % Eos % (Auto) 1.8 L (2-4) % Baso % (Auto) 0.6 (0-2) % Neut # (Auto) 3400 (2479-5248) /uL Lymph # (Auto) 2100 (8133-1974) /uL [place] # (Auto) 500 (0-900) /uL Eos # (Auto) 100 (0-450) /uL Baso # (Auto) 0 (0-100) /uL Sodium 137 (137-145) mmol/L Potassium 3.7 (3.4-5.1) mmol/L Chloride 102 (98-107) mmol/L Carbon Dioxide 24 (22-32) mmol/L BUN 10 (7-17) mg/dL Creatinine 0.64 (0.52-1.04) mg/dL Estimated GFR > 60 (>60) mL/min BUN/Creatinine Ratio 15.6 (6-22) Glucose 96 (70-100) mg/dL Calcium 9.1 (8.4-10.2) mg/dL Magnesium 1.6 (1.6-2.3) mg/dL Total Bilirubin 0.8 (0.2-1.3) mg/dL AST 31 (14-36) IU/L ALT 24 (<35) IU/L Alkaline Phosphatase 89 (38-126) U/L Total Creatine Kinase 106 (30-135) U/L CK-MB (CK-2) 0.81 (<2.37) ng/mL CK-MB (CK-2) Rel Index 0.8 L (1.5-5.0) % Troponin I < 0.012 < 0.012 (0.01-0.034) ng/mL Total Protein 8.6 H (6.3-8.2) g/dL Albumin 4.6 (3.5-5.0) g/dL Globulin 4.0 (1.7-4.1) g/dL Albumin/Globulin Ratio 1.2 (1.0-2.8) Lipase 108 (23-300) U/L Imaging Data Chest x-ray: Radiologist's Impression: PROCEDURE:? XR CHEST 1V ? INDICATIONS:? chest pain ? TECHNIQUE:? One view of the chest was acquired.? ? COMPARISON:? None. ? FINDINGS:? ? Surgical changes and devices:? None.? ? Lungs and pleura:? Lungs are clear.? No pleural effusions or pneumothorax.? ? Mediastinum:? Mediastinal contours appear normal.? Heart size is normal.? ? Bones and chest wall:? No suspicious bony lesions.? Overlying soft tissues appear unremarkable.? ? IMPRESSION:? No acute process. ? ? Dictated by: Nevaeh Beard M.D. on 03/02/2022 at 11:55 ? ? Approved by: Nevaeh Beard M.D. on 03/02/2022 at 11:56 ? [facility] Narrative Medical decision making narrative: 47-year-old female with past medical history GERD, H pylori, hyperlipidemia presents to the ED with substernal chest pressure, abdominal cramping. Concern for ACS versus GERD versus gastritis versus other. Will obtain EKG, chest x-ray, labs, troponin. Will give GI cocktail, Pepcid AC for symptoms. Will reassess. Workup was unremarkable. Patient's symptoms significantly improved with a GI cocktail and Pepcid. Discharge patient home with trial of Pepcid, follow-up with PCP. ED return precautions were discussed with patient. Patient verbalized understanding. <Barbara Rocha, DO - Last Filed: 03/02/22 19:23> Lab Data Labs: Lab Results 03/02/22 03/02/22 03/02/22 Range/Units 11:35 11:35 14:00 WBC 6.1 (4.5-11.0) X10^3/uL RBC 4.44 (4.0-5.2) X10^6/uL Hgb 13.5 (12.0-16.0) g/dL Hct 40.7 (36-46) % MCV 91.7 (80-100) fL MCH 30.4 (26-34) PG MCHC 33.2 (30-36) % RDW 13.4 (11.6-14.8) % Plt Count 233 (150-400) X10^3/uL Neut % (Auto) 55.8 (50-75) % Lymph % (Auto) 34.0 (25-40) % [place] % (Auto) 7.8 (3-14) % Eos % (Auto) 1.8 L (2-4) % Baso % (Auto) 0.6 (0-2) % Neut # (Auto) 3400 (8224-4812) /uL Lymph # (Auto) 2100 (8553-3102) /uL [place] # (Auto) 500 (0-900) /uL Eos # (Auto) 100 (0-450) /uL Baso # (Auto) 0 (0-100) /uL Sodium 137 (137-145) mmol/L Potassium 3.7 (3.4-5.1) mmol/L Chloride 102 (98-107) mmol/L Carbon Dioxide 24 (22-32) mmol/L BUN 10 (7-17) mg/dL Creatinine 0.64 (0.52-1.04) mg/dL Estimated GFR > 60 (>60) mL/min BUN/Creatinine Ratio 15.6 (6-22) Glucose 96 (70-100) mg/dL Calcium 9.1 (8.4-10.2) mg/dL Magnesium 1.6 (1.6-2.3) mg/dL Total Bilirubin 0.8 (0.2-1.3) mg/dL AST 31 (14-36) IU/L ALT 24 (<35) IU/L Alkaline Phosphatase 89 (38-126) U/L Total Creatine Kinase 106 (30-135) U/L CK-MB (CK-2) 0.81 (<2.37) ng/mL CK-MB (CK-2) Rel Index 0.8 L (1.5-5.0) % Troponin I < 0.012 < 0.012 (0.01-0.034) ng/mL Total Protein 8.6 H (6.3-8.2) g/dL Albumin 4.6 (3.5-5.0) g/dL Globulin 4.0 (1.7-4.1) g/dL Albumin/Globulin Ratio 1.2 (1.0-2.8) Lipase 108 (23-300) U/L ECG Data Attestation: I personally reviewed and interpreted this ECG as follows: Prior ECG tracings: not available for review Interpretation: EKG 2. Sinus rhythm nonspecific rate 84 AR 150 QRS is 76 QTC [address] No acute [address] changes appreciated. EKG 1, sinus rhythm rate of 70, AR 130 QRS of 90 QTC [address]. No acute ST changes appreciated. Discharge Plan Departure Patient Disposition: Home Clinical Impression: Abdominal pain Instructions: DI for Abdominal Pain-Adult Activity Restrictions/Additional Instructions: You were evaluated in the ED today for abdominal pain, chest tightness. Your chest x-ray, EKG, labs were normal. Your symptoms are likely due to acid reflux or GERD. You may take Pepcid AC twice daily for the next 14 days. Please follow-up with your GI specialist in PCP as soon as possible. Return to the ED if you have worsening symptoms, persistent vomiting, fever, chills. Prescriptions: No Action dicyclomine 10 mg capsule 10 mg PO TID PRN (Reason: stomach cramps) Qty: 30 1RF melatonin 1 mg Tablet 2 mg PO BEDTIME Referrals: Loi Borja DO [Primary Care Provider] - Visit Report Forms: Patient Portal/API
[2022-03-02 14:53] LABS: Troponin I < 0.012 ng/mL (0.01-0.034)
[2022-03-02] MEDS: FAMOTIDINE 20 MG/2 ML VIAL IV (15:06)
[2022-03-02] MEDS: MAG HYDROX/ALUMINUM/SIMETH SUS 20 ML, LIDOCAINE VISCOUS 2% 15 ML PO (15:06)
== END 2022-03-02 15:31 | disposition home or self-care (01) ==
PROVIDERS: Emergency Medicine; Emergency Provider Student in an Organized Health Care Education/Training Program; PCP Family Medicine
DX: R10.9 Unspecified abdominal pain (principal); R07.9 Chest pain, unspecified
CPT/HCPCS: 36415; 71045; 80053; 82550; 82553; 83690; 83735; 84484; 85025; 93005; 93010; 96374; 99284

== ENCOUNTER → 2022-10-07 09:21 | Outpatient (CLI) | payer OTHER, SELFPAY ==
[2022-10-07 10:24] LABS: Add Manual Diff / Slide Review NO; Basophils Absolute Auto 0 /uL (0-100); Basophils Percent Auto 0.6 % (0-2); Eosinophils Absolute Auto 100 /uL (0-450); Eosinophils Percent Auto 2.9 % (2-4); Hematocrit 38.3 % (36-46); Hemoglobin 13.2 g/dL (12.0-16.0); Lymphocytes Absolute Auto 1500 /uL (1100-4500); Lymphocytes Percent Auto 31.8 % (25-40); Mean Corpuscular HGB Conc 34.6 % (30-36); Mean Corpuscular Volume 92.5 fL (80-100); Monocytes Absolute Auto 400 /uL (0-900); Monocytes Percent Auto 7.4 % (3-14); Neutrophils Absolute Auto 2800 /uL (1500-7000); Neutrophils Percent Auto 57.3 % (50-75); Platelet Count 235 X10^3/uL (150-400); Red Blood Cell Count 4.14 X10^6/uL (4.0-5.2); Red Cell Distribution Width 12.8 % (11.6-14.8); White Blood Cell Count 4.8 X10^3/uL (4.5-11.0)
[2022-10-07 11:04] LABS: Alanine Aminotransferase 22 IU/L (<35); Albumin 4.1 g/dL (3.5-5.0); Albumin Globulin Ratio 1.3 (1.0-2.8); Alkaline Phosphatase 71 U/L (38-126); Aspartate Aminotransferase 29 IU/L (14-36); BUN Creatinine Ratio 19.7 (6-22); Bilirubin Total 1.1 mg/dL (0.2-1.3); Blood Urea Nitrogen 13 mg/dL (7-17); Calcium 8.8 mg/dL (8.4-10.2); Carbon Dioxide 26 mmol/L (22-32); Chloride 102 mmol/L (98-107); Cholesterol 279 mg/dL (140-199); Estimated Glomerular Filt Rate > 60 mL/min (>60); Globulin 3.2 g/dL (1.7-4.1); Glucose 85 mg/dL (70-100); HDL Cholesterol 72 mg/dL (40-60); HEMOLYSIS < 15 (0-50); LDL Cholesterol Calculated 163 mg/dL (<100); Potassium 4.2 mmol/L (3.4-5.1); Sodium 135 mmol/L (137-145); Total Protein 7.3 g/dL (6.3-8.2); Triglycerides 222 mg/dL (35-150)
== END ==
PROVIDERS: PCP Family Medicine; Referring Provider Family Medicine; Visit Provider Family Medicine
DX: D64.9 Anemia, unspecified (principal); E78.2 Mixed hyperlipidemia; N94.6 Dysmenorrhea, unspecified
CPT/HCPCS: 36415; 80053; 80061; 85025

== ENCOUNTER → 2022-10-07 10:32 | Outpatient (CLI) | payer OTHER, SELFPAY ==
[2022-10-08 08:26] LABS: Interpretation Negative (Negative)
== END ==
PROVIDERS: PCP Family Medicine; Referring Provider Nurse Practitioner Family; Visit Provider Nurse Practitioner Family
DX: D64.9 Anemia, unspecified (principal); R10.9 Unspecified abdominal pain; R14.0 Abdominal distension (gaseous); N94.6 Dysmenorrhea, unspecified; E78.2 Mixed hyperlipidemia; Z86.19 Personal history of other infectious and parasitic diseases
CPT/HCPCS: 36415; 80053; 80061; 83013; 85025

== ENCOUNTER → 2023-01-11 13:15 | Outpatient (CLI) | payer OTHER, SELFPAY ==
--- NOTE | 2023-01-11 13:16 | DI.MG.S_ITS ---
BILATERAL DIGITAL SCREENING MAMMOGRAM 3D/2D WITH CAD: 01/11/2023 CLINICAL: Routine screening. Comparison is made to exams dated: 06/22/2019 mammogram - [facility], 10/19/2017 mammogram, and 10/07/2017 mammogram - [facility]. Both breasts are heterogeneously dense, which may obscure small masses (category c / 51-75% glandular tissue). Current study was also evaluated with a Computer Aided Detection (CAD) system. No significant masses, calcifications, or other findings are seen in either breast. IMPRESSION: NEGATIVE There is no mammographic evidence of malignancy. A 1 year screening mammogram is recommended. Based on the Tyrer Cuzick model (a risk assessment model) the patient's lifetime risk is 10.4% and her 10 year risk is 2.4%. According to the ACR, ACS, and NCCN guidelines, an annual breast MRI exam along with mammogram is recommended if the patient's lifetime risk is 20% or greater. This exam was interpreted at Station ID: [id number]. NOTE: For mammograms, a report in lay terms will be sent to the patient. Approximately 15% of breast malignancies will not be visualized mammographically. In the management of a palpable breast mass, a negative mammogram must not discourage biopsy of a clinically suspicious lesion. Electronically Signed By: Yun watters/candelaria:01/11/2023 18:11:17 letter sent: Normal Exam ACR BI-RADS Category 1: Negative 3341F
== END ==
PROVIDERS: PCP Family Medicine; Referring Provider Family Medicine; Visit Provider Family Medicine
DX: Z12.31 Encounter for screening mammogram for malignant neoplasm of breast (principal)
CPT/HCPCS: 77063; 77067

== ENCOUNTER → 2023-11-06 07:55 | Outpatient (CLI) | payer OTHER, SELFPAY ==
[2023-11-06 09:05] LABS: Add Manual Diff / Slide Review NO; Basophils Absolute Auto 0 /uL (0-100); Basophils Percent Auto 0.6 % (0-2); Eosinophils Absolute Auto 100 /uL (0-450); Eosinophils Percent Auto 2.6 % (2-4); Hematocrit 37.5 % (36-46); Hemoglobin 12.6 g/dL (12.0-16.0); Lymphocytes Absolute Auto 1400 /uL (1100-4500); Mean Corpuscular HGB Conc 33.6 % (30-36); Mean Corpuscular Hemoglobin 30.8 PG (26-34); Mean Corpuscular Volume 91.8 fL (80-100); Monocytes Absolute Auto 400 /uL (0-900); Monocytes Percent Auto 7.8 % (3-14); Neutrophils Absolute Auto 2700 /uL (1500-7000); Platelet Count 218 X10^3/uL (150-400); Red Blood Cell Count 4.09 X10^6/uL (4.0-5.2); Red Cell Distribution Width 12.3 % (11.6-14.8); White Blood Cell Count 4.6 X10^3/uL (4.5-11.0)
[2023-11-06 09:35] LABS: Alanine Aminotransferase 14 IU/L (<35); Albumin 4.3 g/dL (3.5-5.0); Albumin Globulin Ratio 1.5 (1.0-2.8); Alkaline Phosphatase 62 U/L (38-126); Aspartate Aminotransferase 25 IU/L (14-36); Bilirubin Total 1.2 mg/dL (0.2-1.3); Blood Urea Nitrogen 12 mg/dL (7-17); Calcium 8.9 mg/dL (8.4-10.2); Carbon Dioxide 26 mmol/L (22-32); Chloride 105 mmol/L (98-107); Cholesterol 218 mg/dL (140-199); Estimated Glomerular Filt Rate > 60 mL/min (>60); Globulin 2.8 g/dL (1.7-4.1); Glucose 89 mg/dL (70-100); HDL Cholesterol 70 mg/dL (40-60); HEMOLYSIS < 15 (0-50); LDL Cholesterol Calculated 130 mg/dL (<100); Potassium 4.2 mmol/L (3.4-5.1); Sodium 135 mmol/L (137-145); Total Protein 7.1 g/dL (6.3-8.2); Triglycerides 90 mg/dL (35-150)
[2023-11-06 10:04] LABS: TSH w/ Reflex to FT4 1.55 uIU/mL (0.47-4.68)
== END ==
PROVIDERS: PCP Family Medicine; Referring Provider Family Medicine; Visit Provider Family Medicine
DX: Z00.00 Encounter for general adult medical examination without abnormal findings (principal); E78.2 Mixed hyperlipidemia
CPT/HCPCS: 36415; 80053; 80061; 84443; 85025

== ENCOUNTER → 2024-02-15 18:09 | Outpatient (CLI) | payer OTHER, SELFPAY ==
--- NOTE | 2024-02-15 18:11 | DI.RAD.S_ITS ---
PROCEDURE: XR CHEST 2V INDICATIONS: Cough TECHNIQUE: 2 views of the chest were acquired. COMPARISON: [facility], CR, XR CHEST 1V, 03/02/2022, 11:42. FINDINGS: Surgical changes and devices: None. Lungs and pleura: Lungs are clear. No pleural effusions or pneumothorax. Mediastinum: Mediastinal contours are normal. Heart size is normal. Bones and chest wall: No suspicious bony abnormalities. Soft tissues appear unremarkable. IMPRESSION: No acute cardiopulmonary abnormality is seen. Dictated by: Danyelle Huff M.D. on 02/16/2024 at 10:24 Approved by: Danyelle Huff M.D. on 02/16/2024 at 10:25
== END ==
PROVIDERS: PCP Family Medicine; Referring Provider Nurse Practitioner Family; Visit Provider Nurse Practitioner Family
DX: R05.9 Cough, unspecified (principal)
CPT/HCPCS: 71046

== ENCOUNTER → 2024-10-13 09:02 | Outpatient (CLI) | payer OTHER, SELFPAY ==
[2024-10-13 09:50] LABS: Add Manual Diff / Slide Review NO; Basophils Absolute Auto 0 /uL (0-100); Basophils Percent Auto 0.8 % (0-2); Eosinophils Absolute Auto 200 /uL (0-450); Eosinophils Percent Auto 4.3 % (2-4); Hematocrit 37.1 % (36-46); Hemoglobin 12.7 g/dL (12.0-16.0); Lymphocytes Absolute Auto 1400 /uL (1100-4500); Lymphocytes Percent Auto 35.6 % (25-40); Mean Corpuscular HGB Conc 34.3 % (30-36); Mean Corpuscular Volume 90.4 fL (80-100); Monocytes Absolute Auto 300 /uL (0-900); Monocytes Percent Auto 7.8 % (3-14); Neutrophils Absolute Auto 2000 /uL (1500-7000); Neutrophils Percent Auto 51.5 % (50-75); Platelet Count 224 X10^3/uL (150-400); Red Cell Distribution Width 12.8 % (11.6-14.8); White Blood Cell Count 3.8 X10^3/uL (4.5-11.0)
[2024-10-13 10:20] LABS: Alanine Aminotransferase 23 IU/L (<35); Albumin 4.1 g/dL (3.5-5.0); Albumin Globulin Ratio 1.4 (1.0-2.8); Alkaline Phosphatase 71 U/L (38-126); Aspartate Aminotransferase 34 IU/L (14-36); BUN Creatinine Ratio 24.2 (6-22); Bilirubin Total 1.1 mg/dL (0.2-1.3); Blood Urea Nitrogen 15 mg/dL (7-17); Calcium 9.3 mg/dL (8.4-10.2); Carbon Dioxide 26 mmol/L (22-32); Chloride 105 mmol/L (98-107); Cholesterol 208 mg/dL (140-199); Estimated Glomerular Filt Rate > 60 mL/min (>60); Globulin 2.9 g/dL (1.7-4.1); Glucose 89 mg/dL (70-99); HDL Cholesterol 67 mg/dL (40-60); HEMOLYSIS < 15 (0-50); LDL Cholesterol Calculated 117 mg/dL (<100); Potassium 4.2 mmol/L (3.4-5.1); Sodium 136 mmol/L (137-145); Triglycerides 119 mg/dL (35-150)
[2024-10-13 10:47] LABS: TSH w/ Reflex to FT4 2.24 uIU/mL (0.47-4.68)
== END ==
PROVIDERS: PCP Family Medicine; Referring Provider Family Medicine; Visit Provider Family Medicine
DX: Z00.00 Encounter for general adult medical examination without abnormal findings (principal); E78.2 Mixed hyperlipidemia; D64.9 Anemia, unspecified
CPT/HCPCS: 36415; 80053; 80061; 84443; 85025